=== PATIENT | female | born 1965 | race Caucasian/White ===

== ENCOUNTER 2017-08-18 05:38 | Inpatient (IN) | payer MEDICAID ==
[~2017-08-18] VITALS: Ht 180.3 cm; Wt 84.7 kg
[2017-08-18 05:52] LABS: URINE BLOOD (Dip) POC 2+ (NEGATIVE)
[2017-08-18] MEDS ORDERED: SOD CHLORIDE 0.9% 500 ML IV STA (05:56)
[2017-08-18] MEDS ORDERED: morphine 4 MG/ML VIAL IV STA (05:56)
[2017-08-18] MEDS ORDERED: ONDANSETRON 4 MG INJ IV STA (05:56)
[2017-08-18] MEDS ORDERED: SODIUM CHLORIDE 0.9% 1L BAG IV* STA (06:14)
--- NOTE | 2017-08-18 06:39 | RADRPT ---
PROCEDURE: CT Abdomen and Pelvis without contrast. CLINICAL INDICATION: Abdominal pain. TECHNIQUE: Routine abdominopelvic CT was performed without intravenous contrast and reformatted in the axial, coronal, sagittal planes. DICOM images are available. Radiation dose: CTDIvol (mGy) = 12.5; total DLP(mGy-cm) = 761 One or more of the following radiation dose techniques were used: -Automated exposure control. -Adjust of the mA and/or kV according to patient size. -Use of iterative reconstruction technique. COMPARISON: None. FINDINGS: Lower Thorax: Normal. Liver: Large, 21 cm in craniocaudal length. Gallbladder/Biliary: Normal. Pancreas: Normal. Spleen: Enlarged, 14 cm in craniocaudal length. Adrenal glands: Normal. Kidneys: 5 mm right proximal ureteral calculus with ipsilateral moderate to severe hydroureteronephr osis and perinephric inflammation. Additional 2 mm nonobstructive calculus identified in the lower p ole, right kidney. Gastrointestinal Tract: Intact surgical anastomoses identified in the sigmoid colon. No abnormal bow el wall thickening or dilatation. Normal appendix.. Lymph: No enlarged or abnormal appearing lymph nodes. Vascular structures: Moderate atherosclerotic aortic calcifications without aneurysm. Peritoneal cavity: No free fluid or fluid collection. Reproductive Organs: Normal. Musculoskeletal: No suspicious bone lesions. Abdominal wall: Moderate sized fat-containing umbilical hernia. IMPRESSION: 5 mm obstructing proximal right ureteral calculus with ipsilateral moderate to severe hydroureterone phrosis. Hepatosplenomegaly. Moderate sized fat-containing umbilical hernia. RPTAT: EE .Lucian Hernandez MD, Date Time Electronically viewed and signed by .Lucian Hernandez MD, MD on 08/18/2017 06:45 .C/
[2017-08-18] MEDS ORDERED: KETOROLAC 30 MG INJ IV STA (06:41)
--- NOTE | 2017-08-18 06:45 | RADRPT ---
PROCEDURE: CHEST - 1 VIEW CLINICAL INDICATION: 52-year-old female with chest/abdominal pain and sepsis. TECHNIQUE: A single frontal AP semi-erect view of the chest was performed. The images were review ed on a PACS workstation. COMPARISON: CT abdomen/pelvis August 18, 2017. FINDINGS: There is a shallow inspiration accentuating the heart size. Accounting for this, the cardiomediastin al silhouette is within normal limits. There is no evidence for an infiltrate. There is no evidenc e for congestive heart failure. There is no evidence for pneumothorax. The osseous structures are in tact. IMPRESSION: No evidence for active cardiopulmonary disease. .Carlos Alberto Montaño MD, Date Time Electronically viewed and signed by .Carlos Alberto Montaño MD, on 08/18/2017 06:45 .[place]e/
--- NOTE | 2017-08-18 06:53 | ERD ---
ER Documentation Chief Complaint Chief Complaint sudden onset RLQ sharp AP, feels need to have BM but not able to HPI 52-year-old homeless female presenting with sudden onset right lower quadrant sharp abdominal pain that started about 5 hours prior to arrival. The pain radiates to her right back. The pain is constant, tearing, 10 out of 10. It was associated with one episode of vomiting that was nonbloody and nonbilious. She denies any associated dysuria, fever, chills, hematochezia or melena. Otherwise history is limited as the patient is in substantial pain and refusing to answer further questions. ROS Limited review of systems as the patient is in severe pain and not answering questions consistently Allergies Allergies: Coded Allergies: Penicillins (Verified Allergy, Unknown, 08/18/17) Sulfa (Sulfonamide Antibiotics) (Verified Allergy, Unknown, 08/18/17) clindamycin (Verified Allergy, Unknown, 08/18/17) erythromycin base (Verified Allergy, Unknown, 08/18/17) tetracycline (Verified Allergy, Unknown, 08/18/17) PMhx/Soc History of Surgery: Yes (ruptured diverticulum repair, colostomy reverse, hernia w/ mesh repair) Anesthesia Reaction: No Hx Neurological Disorder: Yes (brain cancer (past)) Hx Respiratory Disorders: Yes (asthma) Hx Cardiac Disorders: No Hx Alcohol Use: Yes (occasionally) Hx Substance Use: Yes (occasional meth and pot) Hx Tobacco Use: Yes Smoking Status: Current every day smoker FmHx Family History: other (Unable to obtain) Physical Exam Vitals Vital Signs Date Time Temp Pulse Resp B/P Pulse Ox O2 Delivery O2 Flow Rate FiO2 08/18/17 07:00 97.7 67 22 158/93 100 Room Air 08/18/17 05:40 97.0 99 26 166/103 100 Physical Exam Const: Disheveled, dirty, nontoxic, in severe distress secondary to pain, writhing around in bed Head: Atraumatic Eyes: Normal Conjunctiva ENT: Dry mucous membranes. Poor dentition. Th. Neck: Full range of motion..~ No meningismus. Resp: Clear to auscultation bilaterally Cardio: Tachycardic with regular Rhythm, no murmurs Abd: Midline abdominal surgical scar noted. Soft, mild mid right abdominal tenderness, non distended.no pulsatile abdominal mass. No McBurney's point tenderness. No Wiseman's sign. Normal bowel sounds Skin: No petechiae or rashes. Scattered old bruises on left lower extremity. Back: No midline or flank tenderness Ext: No cyanosis, or edema Neur: Awake and alert Psych: Normal Mood and Affect Result Diagram: 08/18/17 0650 08/18/17 0650 Results 24 hrs Laboratory Tests Test 08/18/17 05:40 08/18/17 05:51 08/18/17 06:50 Urine Color YELLOW Urine Clarity CLOUDY Urine pH 7.0 Urine Specific [place] 1.011 Urine Ketones 1+mg/dL Urine Nitrite NEGATIVEmg/dL Urine Bilirubin NEGATIVEmg/dL Urine Urobilinogen NEGATIVEmg/dL Urine Leukocyte Esterase NEGATIVELeu/ul Urine Microscopic RBC > 182/HPF Urine Microscopic WBC 0/HPF Urine Amorphous Crystals MANY/HPF Urine Hemoglobin 3+mg/dL Urine Glucose NEGATIVEmg/dL Urine Total Protein NEGATIVEmg/dl Bedside Urine pH (LAB) 7.5 Bedside Urine Protein (LAB) Negative Bedside Urine Glucose (UA) Negative Bedside Urine Ketones (LAB) 1+ Bedside Urine Blood 2+ Bedside Urine Nitrite (LAB) Negative Bedside Urine Leukocyte Esterase (L Negative White Blood Count 10.910^3/ul Red Blood Count 5.1210^6/ul Hemoglobin 14.2g/dl Hematocrit 41.2% Mean Corpuscular Volume 80.5fl Mean Corpuscular Hemoglobin 27.7pg Mean Corpuscular Hemoglobin Concent 34.5g/dl Red Cell Distribution Width 13.1% Platelet Count 59796^3/UL Mean Platelet Volume 10.0fl Neutrophils % 80.4% Lymphocytes % 13.4% Monocytes % 4.6% Eosinophils % 0.7% Basophils % 0.6% Nucleated Red Blood Cells % 0.0/100WBC Neutrophils # 8.810^3/ul Lymphocytes # 1.510^3/ul Monocytes # 0.510^3/ul Eosinophils # 0.110^3/ul Basophils # 0.110^3/ul Nucleated Red Blood Cells # 0.010^3/ul Prothrombin Time 13.1Sec Prothrombin Time Ratio 1.0 INR International Normalized Ratio 0.98 Activated Partial Thromboplast Time 27.0Sec Sodium Level 143mmol/L Potassium Level 3.9mmol/L Chloride Level 104mmol/L Carbon Dioxide Level 29mmol/L Anion Gap 14 Blood Urea Nitrogen 13mg/dl Creatinine 0.90mg/dl Glucose Level 109mg/dl Lactic Acid Level 0.8mmol/L Calcium Level 9.0mg/dl Total Bilirubin 0.5mg/dl Direct Bilirubin 0.00mg/dl Indirect Bilirubin 0.5mg/dl Aspartate Amino Transf (AST/SGOT) 47IU/L Alanine Aminotransferase (ALT/SGPT) 63IU/L Alkaline Phosphatase 70IU/L Total Protein 6.9g/dl Albumin 3.8g/dl Globulin 3.10g/dl Albumin/Globulin Ratio 1.22 Lipase 41U/L Current Medications Medications (Trade) Dose Ordered Sig/Luciano Route PRN Reason Start Time Stop Time Status Last Admin Dose Admin Sodium Chloride (NS) 500 ml @ 500 mls/hr Q1H STAT IV 08/18/17 05:56 08/18/17 06:55 DC 08/18/17 06:03 Morphine Sulfate (morphine) 4 mg ONCE STAT IV 08/18/17 05:56 08/18/17 05:57 DC 08/18/17 06:03 Ondansetron HCl (Zofran Inj) 4 mg ONCE STAT IV 08/18/17 05:56 08/18/17 05:57 DC 08/18/17 06:03 Sodium Chloride (NS) 2,260 ml BOLUS OVER 2 HOURS STAT IV* 08/18/17 06:14 08/18/17 06:17 DC 08/18/17 07:15 Ketorolac Tromethamine (Toradol) 30 mg ONCE STAT IV 08/18/17 06:41 08/18/17 06:44 DC 08/18/17 07:14 Hydromorphone HCl (Dilaudid) 1 mg ONCE STAT IV 08/18/17 07:30 08/18/17 07:31 DC 08/18/17 07:43 Tamsulosin HCl (Flomax) 0.4 mg ONCE ONCE PO 08/18/17 08:00 08/18/17 08:01 DC 08/18/17 08:21 Ondansetron HCl (Zofran Inj) 4 mg BRIDGE ORDER PRN IV NAUSEA AND/OR VOMITING 08/18/17 08:00 08/19/17 07:59 Acetaminophen (Tylenol Tab) 650 mg ER BRIDGE PRN PO MILD PAIN/FEVER 08/18/17 08:00 08/19/17 07:59 Procedures/MDM EMERGENT LABS AND DIAGNOSTIC STUDIES: Lab Results above were reviewed and interpreted by me. CBC: no anemia or evidence of infection CMP: No evidence of electrolyte abnormality, renal failure, hypoglycemia, liver failure, or biliary obstruction Lipase: no evidence of pancreatitis Lactate within normal limits UA: 2+ blood, 1+ ketones, no evidence of infection Radiology Results as interpreted by Radiology below were reviewed by Kirt Jaime MD: Chest x-ray shows no acute abnormalities CT abdomen and pelvis: IMPRESSION: 5 mm obstructing proximal right ureteral calculus with ipsilateral moderate to severe hydroureteronephrosis. Hepatosplenomegaly. Moderate sized fat-containing umbilical hernia. .Lucian Hernandez MD, MD Date Time Electronically viewed and signed by .Lucian Hernandez MD, MD on 08/18/2017 06:45 Initial Nursing notes reviewed. Previous Medical Records requested via the Electronic Health Record. EMERGENCY DEPARTMENT COURSE / MEDICAL DECISION MAKING: Patient presented with severe right-sided abdominal pain with CT notable for an obstructing right-sided proximal ureter stone with severe hydronephrosis. There is no evidence of associated pyelonephritis. Initially her vitals were notable for tachycardia and tachypnea, likely secondary to pain. I have a low suspicion for sepsis. I also have a low suspicion for aortic dissection. Patient was treated with IV fluids, antiemetics, and analgesics. Given she is homeless with poor outpatient follow-up, I believe she will benefit from admission for urology evaluation. I spoke with Dr. Daly from urology, who will consult on the patient. At this time he does not think intervention is necessary but monitoring for improvement was recommended. He also recommended starting Flomax. Patient will be admitted to the hospitalist team. Admission accepted by Dr. Hermes Loja. Departure Diagnosis: Primary Impression: Obstruction of right ureteropelvic junction due to stone Additional Impression: Right sided abdominal pain Condition: EDEL Valente MD Aug 18, 2017 06:52
[2017-08-18 07:04] LABS: BASOPHIL # 0.1 10^3/ul (0.0-0.1); BASOPHILS % 0.6 % (0.0-2.0); EOSINOPHILS # 0.1 10^3/ul (0.0-0.5); EOSINOPHILS % 0.7 % (0.0-7.0); HEMATOCRIT 41.2 % (37.0-47.0); HEMOGLOBIN 14.2 g/dl (12.0-16.0); LYMPHOCYTES # 1.5 10^3/ul (0.8-2.9); LYMPHOCYTES % 13.4 % (15.0-51.0); MEAN CORPUSCULAR HEMOGLOBIN 27.7 pg (29.0-33.0); MEAN CORPUSCULAR HGB CONC 34.5 g/dl (32.0-37.0); MEAN CORPUSCULAR VOLUME 80.5 fl (82.0-101.0); MONOCYTE # 0.5 10^3/ul (0.3-0.9); MONOCYTES % 4.6 % (0.0-11.0); NEUTROPHIL # 8.8 10^3/ul (1.6-7.5); NEUTROPHILS % 80.4 % (39.0-77.0); PLATELET COUNT 202 10^3/UL (140-415); RED BLOOD COUNT 5.12 10^6/ul (4.20-5.40); RED CELL DISTRIBUTION WIDTH 13.1 % (11.5-14.5); WHITE BLOOD COUNT 10.9 10^3/ul (4.8-10.8)
[2017-08-18 07:09] LABS: ADD UMIC YES; UR AMORPHOUS CRYSTAL MANY /HPF (NONE SEEN); UR ASCORBIC ACID NEGATIVE (NEGATIVE); UR BILIRUBIN (Dip) NEGATIVE (NEGATIVE); UR BLOOD (Dip) 3+ mg/dL (NEGATIVE); UR CLARITY CLOUDY (CLEAR); UR COLOR YELLOW (YELLOW); UR GLUCOSE (Dip) NEGATIVE (NEGATIVE); UR KETONES (Dip) 1+ mg/dL (NEGATIVE); UR LEUKOCYTE ESTERASE (Dip) NEGATIVE Leu/ul (NEGATIVE); UR NITRITE (Dip) NEGATIVE (NEGATIVE); UR RBC > 182 /HPF (0-5); UR SPECIFIC GRAVITY (Dip) 1.011 (1.003-1.030); UR TOTAL PROTEIN (Dip) NEGATIVE (NEGATIVE); UR UROBILINOGEN (Dip) NEGATIVE (NEGATIVE)
[2017-08-18 07:20] LABS: INR 0.98; PROTIME 13.1 Sec (11.9-14.9)
[2017-08-18 07:23] LABS: ALBUMIN 3.8 g/dl (3.3-4.9); ALBUMIN/GLOBULIN RATIO 1.22; BILIRUBIN,INDIRECT 0.5 mg/dl (0-1.1); BILIRUBIN,TOTAL 0.5 mg/dl (0.2-1.3); CREATININE 0.9 mg/dl (0.44-1.00); POTASSIUM 3.9 mmol/L (3.5-5.1); TOTAL PROTEIN 6.9 g/dl (6.1-8.1)
[2017-08-18] MEDS ORDERED: HYDROmorphONE 1 MG/ML SYG IV STA (07:30)
[2017-08-18] MEDS ORDERED: ACETAMINOPHEN 325 MG TAB PO PRN (08:00)
[2017-08-18] MEDS ORDERED: ONDANSETRON 4 MG INJ IV PRN ×2 (08:00→11:00)
[2017-08-18] MEDS ORDERED: TAMSULOSIN (SR) 0.4 MG CAP PO ONE (08:00)
--- NOTE | 2017-08-18 08:32 | RADRPT ---
PROCEDURE: Abdominal study CLINICAL INDICATION: Flank pain and Right ureteral stone. TECHNIQUE: Supine abdomen. COMPARISON: CT abdomen and pelvis August 18, 2017 FINDINGS: The visualized lung bases are clear. No pleural effusions are noted. The bowel gas pattern is unremarkable with no evidence of obstruction. A right proximal to mid ureteral calculus is noted measuring 5 mm superior inferiorly by 3 mm transv ersely to the right of the L3 vertebral body. Mild spondylosis is noted of the imaged spine and post surgical changes are noted superimposed over the left jeane sacrum. Mild degenerative changes are not ed of the bilateral hips. Phleboliths are noted in the pelvis. No acute fractures or dislocations ar e noted. No evidence for pneumoperitoneum is present per IMPRESSION: 1. Right proximal and the mid 5 mm ureteral calculus adjacent to the L3 vertebral body. 2. Mild spondylosis and degenerative changes as described above. 3. Status post surgical changes superimposed over the left jeane sacrum RPTAT: HDC .Leah Thomason MD, MD Date Time Electronically viewed and signed by .Leah Thomason MD, on 08/18/2017 08:31 .C/
[2017-08-18 09:15] VITALS: TEMP 97.6
[2017-08-18 09:38] VITALS: Ht 180.3 cm; Wt 84.7 kg
[2017-08-18 09:48] VITALS: BP 138/89; PULSE 66; RESP 18
[2017-08-18] MEDS ORDERED: ALBU18HF INHALATION (09:54)
[2017-08-18] MEDS ORDERED: LEVO25TA53 PO (09:54)
[2017-08-18] MEDS ORDERED: CHOL100062 PO (09:54)
[2017-08-18] MEDS ORDERED: KETOROLAC 30 MG INJ IV PRN (11:00)
[2017-08-18] MEDS ORDERED: LORAZEPAM 2 MG INJ IV PRN (11:00)
--- NOTE | 2017-08-18 11:12 | HP ---
Date/Time of Note Date/Time of Note DATE: 08/18/17 TIME: 10:46 Assessment/Plan VTE Prophylaxis VTE Prophylaxis Intervention: SCD's Assessment/Plan Assessment/Plan 52-year-old female who presented with 5 hour history of right sided severe abdominal pain found to have obstructing proximal right ureteral calculus with ipsilateral moderate to severe hydroureteronephrosis. Patient also reports history of the following conditions managed in the past: 1. Hypothyroidism 2. Asperger's syndrome and ADHD 3. Status post exploratory laparotomy with resection, colostomy placement and subsequent reversal. 4. Social issues including homelessness, chronic methamphetamine and cannabinoid use. PLAN: Admit patient for urology review and possible intervention if indicated, institute pain control, IV fluids. Patient reports no risk of withdrawal, but we will closely monitor. Screen TSH and T4 levels, follow-up urine culture findings and treat if indicated. Further interventions per clinical course. Patient plan of care discussed in detail with patient. Patient verbalized understanding. HPI/ROS Admit Date/Time Admit Date/Time Aug 18, 2017 at 07:37 Hx of Present Illness This is a 52-year-old female, homeless by her own report who presents to the emergency room today with right-sided flank pain of severe in intensity and that started about 5 hours prior to arrival in the emergency room. Patient rates pain as 10 out of 10 and was relieved by medication given in the emergency room. The patient was sleeping comfortably when I saw her and was actually falling asleep in the middle of the conversation during my visit. The patient states she does have known history of kidney stones, she has had no fever and she has not seen any blood in her stool. She is apparently has a history of Asperger's as well as ADHD and hypothyroidism and asthma, but she is taking no meds for a year while she has been on the streets. She denies chest pain, passing out episodes, palpitations, Blood in her stool, black stools, headaches. ROS 12 point review if systems was done and pertinent findings are as noted. PMH/Family/Social Past Medical History * Hypothyroidism off meds * ADHD/Asperger's syndrome * "Bad liver since childhood" Past Surgical History 1. Carpal tunnel right wrist 2. Elbow surgery 3. Expiratory laparotomy with colostomy placement and subsequent reversal secondary to ruptured bowel Social History Alcohol Use: occasionally Smoking Status: Current every day smoker Drug Use: marijuana, other (meth) Exam/Review of Systems Vital Signs Vitals Vital Signs Date Time Temp Pulse Resp B/P Pulse Ox O2 Delivery O2 Flow Rate FiO2 08/18/17 09:48 97.9 66 18 138/89 100 Room Air Exam Constitutional: oriented, No alert (Sleep be likely from medication, was falling asleep between sentences.) Head: atraumatic, normocephalic Eyes: PERRL, No icteric ENMT: mucosa pink and moist Neck: supple Respiratory: clear to auscultation, No labored breathing, No wheezing Cardiovascular: regular rate and rhythm, No murmurs/extra sounds Gastrointestinal: bowel sounds, soft, tender (Was wincing on right lower quadrant exam, but area did not seem overtly tender. No rebound.) Extremities: edema Neurological: No confused Labs Result Diagram: 08/18/17 0650 08/18/17 0650 Procedures Procedures Laboratory Tests Test 08/18/17 05:40 08/18/17 05:51 08/18/17 06:50 Urine Color YELLOW Urine Clarity CLOUDY Urine pH 7.0 Urine Specific [place] 1.011 Urine Ketones 1+mg/dL Urine Nitrite NEGATIVEmg/dL Urine Bilirubin NEGATIVEmg/dL Urine Urobilinogen NEGATIVEmg/dL Urine Leukocyte Esterase NEGATIVELeu/ul Urine Microscopic RBC > 182/HPF Urine Microscopic WBC 0/HPF Urine Amorphous Crystals MANY/HPF Urine Hemoglobin 3+mg/dL Urine Glucose NEGATIVEmg/dL Urine Total Protein NEGATIVEmg/dl Bedside Urine pH (LAB) 7.5 Bedside Urine Protein (LAB) Negative Bedside Urine Glucose (UA) Negative Bedside Urine Ketones (LAB) 1+ Bedside Urine Blood 2+ Bedside Urine Nitrite (LAB) Negative Bedside Urine Leukocyte Esterase (L Negative White Blood Count 10.910^3/ul Red Blood Count 5.1210^6/ul Hemoglobin 14.2g/dl Hematocrit 41.2% Mean Corpuscular Volume 80.5fl Mean Corpuscular Hemoglobin 27.7pg Mean Corpuscular Hemoglobin Concent 34.5g/dl Red Cell Distribution Width 13.1% Platelet Count 86518^3/UL Mean Platelet Volume 10.0fl Neutrophils % 80.4% Lymphocytes % 13.4% Monocytes % 4.6% Eosinophils % 0.7% Basophils % 0.6% Nucleated Red Blood Cells % 0.0/100WBC Neutrophils # 8.810^3/ul Lymphocytes # 1.510^3/ul Monocytes # 0.510^3/ul Eosinophils # 0.110^3/ul Basophils # 0.110^3/ul Nucleated Red Blood Cells # 0.010^3/ul Prothrombin Time 13.1Sec Prothrombin Time Ratio 1.0 INR International Normalized Ratio 0.98 Activated Partial Thromboplast Time 27.0Sec Sodium Level 143mmol/L Potassium Level 3.9mmol/L Chloride Level 104mmol/L Carbon Dioxide Level 29mmol/L Anion Gap 14 Blood Urea Nitrogen 13mg/dl Creatinine 0.90mg/dl Glucose Level 109mg/dl Lactic Acid Level 0.8mmol/L Calcium Level 9.0mg/dl Total Bilirubin 0.5mg/dl Direct Bilirubin 0.00mg/dl Indirect Bilirubin 0.5mg/dl Aspartate Amino Transf (AST/SGOT) 47IU/L Alanine Aminotransferase (ALT/SGPT) 63IU/L Alkaline Phosphatase 70IU/L Total Protein 6.9g/dl Albumin 3.8g/dl Globulin 3.10g/dl Albumin/Globulin Ratio 1.22 Lipase 41U/L PROCEDURE: CT Abdomen and Pelvis without contrast. CLINICAL INDICATION: Abdominal pain. TECHNIQUE: Routine abdominopelvic CT was performed without intravenous contrast and reformatted in the axial, coronal, sagittal planes. DICOM images are available. Radiation dose: CTDIvol (mGy) = 12.5; total DLP(mGy-cm) = 761 One or more of the following radiation dose techniques were used: -Automated exposure control. -Adjust of the mA and/or kV according to patient size. -Use of iterative reconstruction technique. COMPARISON: None. FINDINGS: Lower Thorax: Normal. Liver: Large, 21 cm in craniocaudal length. Gallbladder/Biliary: Normal. Pancreas: Normal. Spleen: Enlarged, 14 cm in craniocaudal length. Adrenal glands: Normal. Kidneys: 5 mm right proximal ureteral calculus with ipsilateral moderate to severe hydroureteronephrosis and perinephric inflammation. Additional 2 mm nonobstructive calculus identified in the lower pole, right kidney. Gastrointestinal Tract: Intact surgical anastomoses identified in the sigmoid colon. No abnormal bowel wall thickening or dilatation. Normal appendix.. Lymph: No enlarged or abnormal appearing lymph nodes. Vascular structures: Moderate atherosclerotic aortic calcifications without aneurysm. Peritoneal cavity: No free fluid or fluid collection. Reproductive Organs: Normal. Musculoskeletal: No suspicious bone lesions. Abdominal wall: Moderate sized fat-containing umbilical hernia. IMPRESSION: 5 mm obstructing proximal right ureteral calculus with ipsilateral moderate to severe hydroureteronephrosis. Hepatosplenomegaly. Moderate sized fat-containing umbilical hernia. RPTAT: EE .Lucian Hernandez MD, Date Time Electronically viewed and signed by .Lucian Hernandez MD, MD on 08/18/2017 06:45 .C/ CC: GENTRY PLUMMER PROCEDURE: CHEST - 1 VIEW CLINICAL INDICATION: 52-year-old female with chest/abdominal pain and sepsis. TECHNIQUE: A single frontal AP semi-erect view of the chest was performed. The images were reviewed on a PACS workstation. COMPARISON: CT abdomen/pelvis August 18, 2017. FINDINGS: There is a shallow inspiration accentuating the heart size. Accounting for this , the cardiomediastinal silhouette is within normal limits. There is no evidence for an infiltrate. There is no evidence for congestive heart failure. There is no evidence for pneumothorax. The osseous structures are intact. IMPRESSION: No evidence for active cardiopulmonary disease. .Carlos Alberto Montaño MD, MD Date Time Electronically viewed and signed by .Carlos Alberto Montaño MD, MD on 08/18/2017 06:45 .M/ CC: EDEL BILLY MD PROCEDURE: Abdominal study CLINICAL INDICATION: Flank pain and Right ureteral stone. TECHNIQUE: Supine abdomen. COMPARISON: CT abdomen and pelvis August 18, 2017 FINDINGS: The visualized lung bases are clear. No pleural effusions are noted. The bowel gas pattern is unremarkable with no evidence of obstruction. A right proximal to mid ureteral calculus is noted measuring 5 mm superior inferiorly by 3 mm transversely to the right of the L3 vertebral body. Mild spondylosis is noted of the imaged spine and postsurgical changes are noted superimposed over the left jeane sacrum. Mild degenerative changes are noted of the bilateral hips. Phleboliths are noted in the pelvis. No acute fractures or dislocations are noted. No evidence for pneumoperitoneum is present per IMPRESSION: 1. Right proximal and the mid 5 mm ureteral calculus adjacent to the L3 vertebral body. 2. Mild spondylosis and degenerative changes as described above. 3. Status post surgical changes superimposed over the left jeane sacrum RPTAT: HDC .Leah Thomason MD, MD Date Time Electronically viewed and signed by .Leah Thomason MD, MD on 08/18/2017 08: 31 .C/ CC: EZEQUIEL GARDUNO MD, BOLAT[place]O M. Aug 18, 2017 10:56
[2017-08-18] MEDS: SOD CHLORIDE 0.9% 1,000 ML IV SCH ×2 (12:34→19:56)
--- NOTE | 2017-08-18 12:47 | CONS ---
DATE OF ADMISSION: 08/18/2017 DATE OF CONSULTATION: 08/18/2017 REQUESTING PHYSICIAN: Dr. Daley: HISTORY OF PRESENT ILLNESS: This is a 52-year-old female who is homeless and presented to the emerg ency room at [facility] with right flank pain. She underwent a CT scan of the abd omen and pelvis and that showed a 5 mm stone in the upper ureter with hydronephrosis. Therefore, a urological consultation was requested. The patient upon questioning her stated that about 6 months ago she presented to another hospital, w as told she has a stone, was given medication and sent home. Most likely that is the same stone amber t she has right now. She never passed the stone that she could see. The patient's other medical pr oblem, she does have a history of hypothyroidism and Asperger syndrome, ADHD and she has had a bad l iver since she was a child. PAST SURGICAL HISTORY: She has had a colostomy for ruptured bowel. Probably she did have a diverti culitis. She did have a reversal of the colostomy later on. She also has had elbow surgery and car pal tunnel on the right side. SOCIAL HISTORY: Again, she is a homeless person. She does drink occasionally. She is a current ev eryday smoker and she does also smoke marijuana and sometimes methamphetamine. ALLERGIES: CLONIDINE, PENICILLIN, and SULFA. Also CLINDAMYCIN, ERYTHROMYCIN BASE, MORPHINE and TET RACYCLINE. PHYSICAL EXAMINATION: GENERAL: Reveals a 52-year-old female who is afebrile. VITAL SIGNS: Temperature 97.9, pulse is 66, respiration 18, blood pressure 138/89. ABDOMEN: Tender in the right flank area. There are scars on her abdomen from her prior surgeries. EXTREMITIES: Reveal no edema. LABORATORY DATA: Her CBC shows a white count of 10.9, hemoglobin 14.2, hematocrit 41.2. BUN is 13, creatinine 0.9. Electrolytes are normal. PT is 13.1, INR 0.98, PTT 27.0. The medication that she is presently on is morphine sulfate, lorazepam, Toradol and Zofran. The CT scan of the abdomen and pelvis was reported as a 5 mm obstructing proximal right ureteral stone with ipsilateral moderate to severe hydroureteronephrosis, hepatosplenomegaly, moderate size fat contain ing umbilical hernia. She also later on had a KUB, which I ordered for her to see if we could see t he stone and that was reported as a 5 mm ureteral calculus adjacent to the L3-level vertebral body i s visualized. IMPRESSION: Right upper ureteral stone with obstruction. PLAN: To give her pain medications and cover her with her antibiotic, put her on Flomax and repeat the KUB again in the morning and if the stone does not move then we may have to do a ureteroscopy an d laser lithotripsy or if we could push the stone back into the kidney and do ESWL we could try that as well. I will follow her urological problem with you. I do thank you for allowing me to help in her care. Dictated By: EZEQUIEL GARDUNO MD BB/NTS Conf#: [id number] DID#: [id number] CC: MOI BAH MD;*EndCC*
[2017-08-18] MEDS: morphine 4 MG/ML VIAL IV PRN ×2 (13:44→19:56)
[2017-08-18 14:30] VITALS: BP 130/75; RESP 20
[2017-08-18] MEDS ORDERED: INFLUENZA VIRUS VACCINE 0.5 ML SYG IM* ONE (15:00)
[2017-08-18 20:00] VITALS: BP 131/65; RESP 18
[2017-08-18] MEDS: TAMSULOSIN (SR) 0.4 MG CAP PO SCH (20:46)
[2017-08-19 02:00] VITALS: BP 129/65; RESP 18
[2017-08-19] MEDS: SOD CHLORIDE 0.9% 1,000 ML IV SCH ×3 (03:00→17:51)
[2017-08-19 06:50] LABS: BASOPHIL # 0.1 10^3/ul (0.0-0.1); BASOPHILS % 1.2 % (0.0-2.0); EOSINOPHILS # 0.2 10^3/ul (0.0-0.5); EOSINOPHILS % 3.1 % (0.0-7.0); HEMATOCRIT 37.7 % (37.0-47.0); HEMOGLOBIN 12.7 g/dl (12.0-16.0); LYMPHOCYTES # 1.7 10^3/ul (0.8-2.9); LYMPHOCYTES % 26.7 % (15.0-51.0); MEAN CORPUSCULAR HEMOGLOBIN 27.3 pg (29.0-33.0); MEAN CORPUSCULAR HGB CONC 33.7 g/dl (32.0-37.0); MEAN CORPUSCULAR VOLUME 81.1 fl (82.0-101.0); MEAN PLATELET VOLUME 10.3 fl (7.4-10.4); MONOCYTE # 0.5 10^3/ul (0.3-0.9); MONOCYTES % 7.6 % (0.0-11.0); NEUTROPHILS % 61.2 % (39.0-77.0); PLATELET COUNT 172 10^3/UL (140-415); RED BLOOD COUNT 4.65 10^6/ul (4.20-5.40); RED CELL DISTRIBUTION WIDTH 13.1 % (11.5-14.5); WHITE BLOOD COUNT 6.5 10^3/ul (4.8-10.8)
[2017-08-19 07:04] LABS: CALCIUM 8.9 mg/dl (8.4-10.2); CHOL/HDL RATIO 3.5 RATIO; MAGNESIUM 1.5 mg/dl (1.7-2.5)
[2017-08-19 07:33] LABS: THYROID STIMULATING HORMONE 0.983 MIU/L (0.465-4.680)
[2017-08-19 08:00] VITALS: BP 124/62; RESP 20
--- NOTE | 2017-08-19 08:16 | CONS ---
Date/Time of Note Date/Time of Note DATE: 08/19/17 TIME: 08:13 Consult Date/Type/Reason Admit Date/Time Aug 18, 2017 at 07:37 Initial Consult Date August 18, 2017 Type of Consultation: Urology Reason for Consultation Right ureteral stone Ordering Provider: DILAN KIM Subjective Patient still have pain in the right flank area on the right side of the abdomen , no nausea or vomiting Objective Vital Signs Date Time Temp Pulse Resp B/P Pulse Ox O2 Delivery O2 Flow Rate FiO2 08/19/17 02:00 98.5 18 18 129/65 96 08/18/17 09:48 Room Air Intake and Output 08/18/17 08/18/17 08/19/17 15:00 23:00 07:00 Intake Total 1385 ml 1250 ml Output Total 800 ml Balance 585 ml 1250 ml Exam Right flank tenderness and tenderness in the right upper quadrant Results/Medications Result Diagram: 08/19/17 0553 08/19/17 0552 Results 24 hrs Laboratory Tests Test 08/18/17 10:27 08/19/17 05:52 08/19/17 05:53 Lactic Acid Level 0.9 Sodium Level 140 Potassium Level 4.0 Chloride Level 106 Carbon Dioxide Level 30 Anion Gap 8 Blood Urea Nitrogen 13 Creatinine 1.00 Glucose Level 115 Calcium Level 8.9 Magnesium Level 1.5 L Triglycerides Level 47 Cholesterol Level 63 L LDL Cholesterol, Calculated 36 HDL Cholesterol 18 L Cholesterol/HDL Ratio 3.5 Thyroid Stimulating Hormone (TSH) 0.983 Free Thyroxine 1.15 White Blood Count 6.5 # Red Blood Count 4.65 Hemoglobin 12.7 Hematocrit 37.7 Mean Corpuscular Volume 81.1 L Mean Corpuscular Hemoglobin 27.3 L Mean Corpuscular Hemoglobin Concent 33.7 Red Cell Distribution Width 13.1 Platelet Count 172 Mean Platelet Volume 10.3 Neutrophils % 61.2 Lymphocytes % 26.7 Monocytes % 7.6 Eosinophils % 3.1 Basophils % 1.2 Nucleated Red Blood Cells % 0.0 Neutrophils # 4.0 Lymphocytes # 1.7 Monocytes # 0.5 Eosinophils # 0.2 Basophils # 0.1 Nucleated Red Blood Cells # 0.0 Medications Current Medications Morphine Sulfate 4 mg 4 mg Q4H PRN IV pain Last administered on 08/18/17t 19:56 ; Admin Dose 4 MG; Start 08/18/17 at 11:00 Sodium Chloride (NS) 1,000 ml @ 125 mls/hr Q8H IV Last administered on 05:05; Admin Dose 125 MLS/HR; Start 08/18/17 at 11:00 Lorazepam (Ativan) 1 mg Q6H PRN IV anxiety/ agitation; Start 08/18/17 at 11:00 Ketorolac Tromethamine (Toradol) 30 mg Q6H PRN IV PAIN; Start 08/18/17 at 11:00 ; Stop 08/21/17 at 10:59 Ondansetron HCl (Zofran Inj) 4 mg Q6H PRN IV NAUSEA AND/OR VOMITING; Start 08/18/17 at 11:00 Tamsulosin HCl (Flomax) 0.4 mg HS PO Last administered on 08/18/17 20:46; Admin Dose 0.4 MG; Start 08/18/17 at 21:00 Assessment/Plan Chief Complaint/Hosp Course 52-year-old female was admitted to the hospital because of right flank pain was nausea vomiting and chills. CT scan of the abdomen and pelvis showed a 5 mm stone in the upper right ureter was hydronephrosis. KUB for today is pending, the patient still have some pain. Will continue to give her pain medications, strain the urine, put her on Flomax, and do a KUB to see if the stone is moving and if it does not then we will do cystoscopy ureteroscopy laser lithotripsy and inserted JJ stent. Problems: EZEQUIEL GARDUNO MD Aug 19, 2017 08:16
[2017-08-19] MEDS ORDERED: MAGNESIUM SULFATE 2 GM/50 ML 50 ML IVPB ONE (10:00)
[2017-08-19] MEDS: morphine 4 MG/ML VIAL IV PRN ×3 (10:09→19:58)
--- NOTE | 2017-08-19 10:23 | RADRPT ---
PROCEDURE: XR Abdomen. CLINICAL INDICATION: Right ureteral calculus. TECHNIQUE: AP supine abdomen x-ray. COMPARISON: 08/18/2017. FINDINGS: The bowel gas pattern is normal with no evidence of obstruction. Surgical clips are present in the left side of the abdomen. There is a calculus overlying the mid right ureter at the L3-4 level. There are no other abnormal ca lcifications overlying the urinary tracts. The osseus structures are unremarkable. IMPRESSION: 1. Surgical clips in the left side of the abdomen. 2. Calculus overlying the mid right ureter at the L3-4 level. 3. Otherwise unremarkable study. RPTAT: QQ .Jeff Neely MD, MD Date Time Electronically viewed and signed by .Jeff Neely MD, MD on 08/19/2017 10:23 .R/
[2017-08-19] MEDS ORDERED: ALBUTEROL/IPRATROPIUM (NEB) 3 ML AMP HHN PRN (12:00)
[2017-08-19 14:00] VITALS: BP 136/82; RESP 20
[2017-08-19] MEDS: CEFTRIAXONE 1 GM/50 ML (PMX) 50 ML IVPB SCH (14:16)
[2017-08-19] MEDS: ALBUTEROL/IPRATROPIUM (NEB) 3 ML AMP HHN SCH ×2 (14:47→20:48)
--- NOTE | 2017-08-19 16:03 | PN ---
Date/Time of Note Date/Time of Note DATE: 08/19/17 TIME: 15:58 Assessment/Plan VTE Prophylaxis VTE Prophylaxis Intervention: SCD's Lines/Catheters IV Catheter Type (from Nrsg): Peripheral IV Assessment/Plan Chief Complaint/Hosp Course s: 12.5 still has moderate R flank pain o: Physical exam General: Patient is laying in bed and answers questions appropriately Mentation: Patient is alert and oriented 4, Head: Normocephalic atraumatic Eyes: EOMI, pupils reactive to light Neck: Supple, nontender, midline Respiratory: Clear to auscultation bilaterally Cardiovascular: regular rate, no obvious murmurs Gastrointestinal: non-tender to palpation, bowel sounds heard. Neurological: Moves all extremities spontaneously Skin: No new skin lesions Patient is a 52-year-old female who presents with right-sided obstructing ureteric calculus and hydronephrosis Assessment and plan Right ureteral calculus with resultant hydroureteronephrosis -Urology has been consulted, monitoring with KUB and fluids, may need lithotripsy -Pain control and IV fluids Hepatosplenomegaly -Monitor Fat-containing umbilical hernia -Astigmatic monitor Hypothyroidism -Off medication and TSH and free T4 within normal limits, monitor Disposition -Follow with urology recommendations Problems: Exam/Review of Systems Vital Signs Vitals Vital Signs Date Time Temp Pulse Resp B/P Pulse Ox O2 Delivery O2 Flow Rate FiO2 08/19/17 14:48 76 18 96 21 08/19/17 08:00 98.6 124/62 08/18/17 09:48 Room Air Intake and Output 08/18/17 08/18/17 08/19/17 15:00 23:00 07:00 Intake Total 1385 ml 1250 ml Output Total 800 ml Balance 585 ml 1250 ml Results Result Diagram: 08/19/17 0553 08/19/17 0552 Results 24 hrs Laboratory Tests Test 08/19/17 05:52 08/19/17 05:53 Sodium Level 140 Potassium Level 4.0 Chloride Level 106 Carbon Dioxide Level 30 Anion Gap 8 Blood Urea Nitrogen 13 Creatinine 1.00 Glucose Level 115 Calcium Level 8.9 Magnesium Level 1.5 L Triglycerides Level 47 Cholesterol Level 63 L LDL Cholesterol, Calculated 36 HDL Cholesterol 18 L Cholesterol/HDL Ratio 3.5 Thyroid Stimulating Hormone (TSH) 0.983 Free Thyroxine 1.15 White Blood Count 6.5 # Red Blood Count 4.65 Hemoglobin 12.7 Hematocrit 37.7 Mean Corpuscular Volume 81.1 L Mean Corpuscular Hemoglobin 27.3 L Mean Corpuscular Hemoglobin Concent 33.7 Red Cell Distribution Width 13.1 Platelet Count 172 Mean Platelet Volume 10.3 Neutrophils % 61.2 Lymphocytes % 26.7 Monocytes % 7.6 Eosinophils % 3.1 Basophils % 1.2 Nucleated Red Blood Cells % 0.0 Neutrophils # 4.0 Lymphocytes # 1.7 Monocytes # 0.5 Eosinophils # 0.2 Basophils # 0.1 Nucleated Red Blood Cells # 0.0 Medications Medications Current Medications Morphine Sulfate 4 mg 4 mg Q4H PRN IV pain Last administered on 08/19/17 14:20 ; Admin Dose 4 MG; Start 08/18/17 at 11:00 Sodium Chloride (NS) 1,000 ml @ 125 mls/hr Q8H IV Last administered on 05:05; Admin Dose 125 MLS/HR; Start 08/18/17 at 11:00 Lorazepam (Ativan) 1 mg Q6H PRN IV anxiety/ agitation; Start 08/18/17 at 11:00 Ketorolac Tromethamine (Toradol) 30 mg Q6H PRN IV PAIN; Start 08/18/17 at 11:00 ; Stop 08/21/17 at 10:59 Ondansetron HCl (Zofran Inj) 4 mg Q6H PRN IV NAUSEA AND/OR VOMITING; Start 08/18/17 at 11:00 Tamsulosin HCl 0.4 mg 0.4 mg HS PO Last administered on 08/18/17 20:46; Admin Dose 0.4 MG; Start 08/18/17 at 21:00 Ceftriaxone Sodium (Rocephin) 50 ml @ 100 mls/hr Q24H IVPB Last administered on 08/19/17 14:16; Admin Dose 100 MLS/HR; Start 08/19/17 at 11:30 MOI BAH Aug 19, 2017 16:03
[2017-08-19 19:46] VITALS: BP 135/63; RESP 18
[2017-08-19] MEDS: TAMSULOSIN (SR) 0.4 MG CAP PO SCH (20:02)
[2017-08-20] VITALS (12 sets, daily range): BP systolic 142–178; BP diastolic 81–106; PULSE 68–82; RESP 13–24
[2017-08-20] MEDS: SOD CHLORIDE 0.9% 1,000 ML IV SCH ×3 (03:25→19:00)
[2017-08-20] MEDS: morphine 4 MG/ML VIAL IV PRN ×3 (05:24→14:33)
--- NOTE | 2017-08-20 08:00 | HPN ---
Date/Time of Note Date/Time of Note DATE: 08/20/17 TIME: 07:59 Interval H&P Admission Note Pt. seen H&P reviewed: No system changes EZEQUIEL GARDUNO MD Aug 20, 2017 08:00
[2017-08-20 09:58] LABS: BASOPHIL # 0.1 10^3/ul (0.0-0.1); BASOPHILS % 1.2 % (0.0-2.0); EOSINOPHILS # 0.2 10^3/ul (0.0-0.5); EOSINOPHILS % 3.5 % (0.0-7.0); HEMATOCRIT 37.7 % (37.0-47.0); HEMOGLOBIN 12.6 g/dl (12.0-16.0); LYMPHOCYTES # 1.6 10^3/ul (0.8-2.9); LYMPHOCYTES % 30.8 % (15.0-51.0); MEAN CORPUSCULAR HEMOGLOBIN 27.3 pg (29.0-33.0); MEAN CORPUSCULAR HGB CONC 33.4 g/dl (32.0-37.0); MEAN CORPUSCULAR VOLUME 81.6 fl (82.0-101.0); MEAN PLATELET VOLUME 10.1 fl (7.4-10.4); MONOCYTE # 0.3 10^3/ul (0.3-0.9); MONOCYTES % 4.8 % (0.0-11.0); NEUTROPHIL # 3.1 10^3/ul (1.6-7.5); NEUTROPHILS % 59.5 % (39.0-77.0); PLATELET COUNT 184 10^3/UL (140-415); RED BLOOD COUNT 4.62 10^6/ul (4.20-5.40); RED CELL DISTRIBUTION WIDTH 13.2 % (11.5-14.5); WHITE BLOOD COUNT 5.2 10^3/ul (4.8-10.8)
[2017-08-20 10:19] LABS: CALCIUM 8.9 mg/dl (8.4-10.2); CREATININE 0.77 mg/dl (0.44-1.00); POTASSIUM 4.2 mmol/L (3.5-5.1)
[2017-08-20 10:20] LABS: MAGNESIUM 1.6 mg/dl (1.7-2.5); PHOSPHORUS 4.2 mg/dl (2.5-4.9)
--- NOTE | 2017-08-20 10:23 | CONS ---
DATE OF ADMISSION: 08/18/2017 DATE OF CONSULTATION: 08/20/2017 Basically, the patient does have a right upper ureteral stone that has not moved much causing her ri ght hydronephrosis. I had scheduled her for the cystoscopy, right ureteroscopy, laser lithotripsy, and insertion of a JJ stent. I did explain the procedure to the patient in detail, the benefits, th e risks, the possible complications, the success, as well as possible being unable to reach the ston e and have to put a JJ stent and that she will need a followup procedure. Also the fact that we put a JJ stent and the stent has to be removed later on. If the stone was removed, then we could remov e the JJ stent in a few days. Otherwise, will have to put a stent and bring her back later on for t he ureteroscopy and laser lithotripsy. I did explain all of these details to her and she understood and she is agreeable to proceed. Dictated By: EZEQUIEL MARTINO/RADHA Conf#: [id number] DID#: [id number]
[2017-08-20] MEDS: CEFTRIAXONE 1 GM/50 ML (PMX) 50 ML IVPB SCH (11:42)
[2017-08-20] MEDS ORDERED: MAGNESIUM SULFATE 2 GM/50 ML 50 ML IVPB ONE (14:30)
--- NOTE | 2017-08-20 15:12 | PN ---
Date/Time of Note Date/Time of Note DATE: 08/20/17 TIME: 15:11 Assessment/Plan VTE Prophylaxis VTE Prophylaxis Intervention: ambulation, SCD's Lines/Catheters IV Catheter Type (from Nrsg): Peripheral IV Urinary Cath still in place: No Assessment/Plan Chief Complaint/Hosp Course s: 12.5 still has moderate R flank pain 12.6 pain still present o: Physical exam General: Patient is laying in bed and answers questions appropriately Mentation: Patient is alert and oriented 4, Head: Normocephalic atraumatic Eyes: EOMI, pupils reactive to light Neck: Supple, nontender, midline Respiratory: Clear to auscultation bilaterally Cardiovascular: regular rate, no obvious murmurs Gastrointestinal: non-tender to palpation, bowel sounds heard. Neurological: Moves all extremities spontaneously Skin: No new skin lesions Patient is a 52-year-old female who presents with right-sided obstructing ureteric calculus and hydronephrosis Assessment and plan Right ureteral calculus with resultant hydroureteronephrosis -Urology has been consulted,plans for lithotripsy and stent placement today if possible -continue fluids and pain control Hepatosplenomegaly -Monitor Fat-containing umbilical hernia -Astigmatic monitor Hypothyroidism -Off medication and TSH and free T4 within normal limits, monitor Disposition -Follow with urology recommendations Problems: Exam/Review of Systems Vital Signs Vitals Vital Signs Date Time Temp Pulse Resp B/P Pulse Ox O2 Delivery O2 Flow Rate FiO2 08/20/17 08:00 98.8 86 18 162/ 96 08/19/17 20:48 21 08/18/17 09:48 Room Air Intake and Output 08/19/17 08/19/17 08/20/17 15:00 23:00 07:00 Intake Total 100 ml 1960 ml 1475 ml Output Total 1000 ml 1200 ml Balance 100 ml 960 ml 275 ml Results Result Diagram: 08/20/17 0907 08/20/17 0907 Results 24 hrs Laboratory Tests Test 08/20/17 09:07 White Blood Count 5.2 Red Blood Count 4.62 Hemoglobin 12.6 Hematocrit 37.7 Mean Corpuscular Volume 81.6 L Mean Corpuscular Hemoglobin 27.3 L Mean Corpuscular Hemoglobin Concent 33.4 Red Cell Distribution Width 13.2 Platelet Count 184 Mean Platelet Volume 10.1 Neutrophils % 59.5 Lymphocytes % 30.8 Monocytes % 4.8 Eosinophils % 3.5 Basophils % 1.2 Nucleated Red Blood Cells % 0.0 Neutrophils # 3.1 Lymphocytes # 1.6 Monocytes # 0.3 Eosinophils # 0.2 Basophils # 0.1 Nucleated Red Blood Cells # 0.0 Sodium Level 141 Potassium Level 4.2 Chloride Level 104 Carbon Dioxide Level 30 Anion Gap 11 Blood Urea Nitrogen 14 Creatinine 0.77 Glucose Level 174 Calcium Level 8.9 Phosphorus Level 4.2 Magnesium Level 1.6 L Medications Medications Current Medications Morphine Sulfate 4 mg 4 mg Q4H PRN IV pain Last administered on 08/20/17 14:33 ; Admin Dose 4 MG; Start 08/18/17 at 11:00 Sodium Chloride (NS) 1,000 ml @ 125 mls/hr Q8H IV Last administered on 11:42; Admin Dose 125 MLS/HR; Start 08/18/17 at 11:00 Lorazepam (Ativan) 1 mg Q6H PRN IV anxiety/ agitation; Start 08/18/17 at 11:00 Ketorolac Tromethamine (Toradol) 30 mg Q6H PRN IV PAIN; Start 08/18/17 at 11:00 ; Stop 08/21/17 at 10:59 Ondansetron HCl (Zofran Inj) 4 mg Q6H PRN IV NAUSEA AND/OR VOMITING; Start 08/18/17 at 11:00 Tamsulosin HCl 0.4 mg 0.4 mg HS PO Last administered on 08/19/17 20:02; Admin Dose 0.4 MG; Start 08/18/17 at 21:00 Ceftriaxone Sodium 50 ml @ 100 mls/hr Q24H IVPB Last administered on 11:42; Admin Dose 100 MLS/HR; Start 08/19/17 at 11:30 Magnesium Sulfate (Magnesium Sulfate 2 Gm/50 ml) 50 ml @ 25 mls/hr ONCE ONCE IVPB ; Start 08/20/17 at 14:30; Stop 08/20/17 at 16:29 MOI BAH Aug 20, 2017 15:11
[2017-08-20] MEDS: ALBUTEROL/IPRATROPIUM (NEB) 3 ML AMP HHN SCH (19:39)
[2017-08-20] MEDS ORDERED: HYDROmorphONE (0.2 MG/ML) 10ML SYG IV ONE (19:42)
[2017-08-20] MEDS: HYDROmorphONE (0.2 MG/ML) 10ML SYG IV PRN ×2 (19:50→23:30)
[2017-08-20] MEDS ORDERED: KETOROLAC 30 MG INJ IV PRN (20:00)
[2017-08-20] MEDS ORDERED: hydrALAzine 20 MG INJ IV PRN (20:00)
[2017-08-20] MEDS ORDERED: LABETALOL HCL 20MG INJ IV PRN (20:00)
[2017-08-20] MEDS ORDERED: METOCLOPRAMIDE 10 MG INJ IV PRN (20:00)
[2017-08-20] MEDS ORDERED: MEPERIDINE 25 MG INJ IV PRN (20:00)
[2017-08-20] MEDS ORDERED: ONDANSETRON 4 MG INJ IV PRN (20:00)
[2017-08-20] MEDS ORDERED: FENTAnyl 50 MCG/ML VIAL IV PRN (20:00)
[2017-08-20] MEDS ORDERED: DIPHENHYDRAMINE 50 MG INJ IV PRN (20:00)
[2017-08-20] MEDS ORDERED: HYDROmorphONE (0.2 MG/ML) 10ML SYG IV PRN (20:00)
[2017-08-20] MEDS ORDERED: MIDAZOLAM 1 MG/ML 2 ML INJ ONE (20:50)
[2017-08-20] MEDS: TAMSULOSIN (SR) 0.4 MG CAP PO SCH (21:00)
[2017-08-20] MEDS ORDERED: PROPOFOL 20 ML ONE (22:09)
[2017-08-20] MEDS ORDERED: LIDOCAINE 2% (SDV) 5 ML INJ ONE (22:09)
[2017-08-20] MEDS ORDERED: ONDANSETRON 4 MG INJ ONE (22:10)
[2017-08-20] MEDS ORDERED: CIPROFLOXACIN 400MG/D5W 200 ML ONE (22:10)
--- NOTE | 2017-08-20 22:17 | OPR ---
Date/Time of Note Date/Time of Note DATE: 08/20/17 TIME: 22:09 Operative Report Procedure Date: Aug 20, 2017 Preoperative Diagnosis Right upper ureteral stone Postoperative Diagnosis Right upper ureteral stone Operation/Procedure Performed Cystoscopy, right ureteral pyeloscopy, laser lithotripsy and insertion of right ureteral JJ stent 6 [place] by 22 cm long Surgeon see signature line Preparing Box Tender None Anesthesia Type: general Anesthesiologist: FRANCES DELANEY MD Estimated Blood Loss: none Transfusion none Specimen Stone fragments Grafts/Implants none Tubes/Drains Right ureteral JJ stent 6 [place] by 22 cm long Complications none Pt Condition Post Procedure: stable Disposition: PACU Indications Right upper ureteral stone was obstruction Procedure Description The patient was brought to the operating room and general anesthesia was induced. The patient received 400 mg of Cipro IV at the start of the procedure. Timeout was done and the patient was identified by her name, birthdate and the procedure and the side of the procedure. The patient was then positioned in the lithotomy position and the genital area was prepped and draped in the usual sterile manner. A 21 [place] cystoscope sheath was introduced into the bladder and urine was collected for culture and sensitivity. The right ureteral orifice was identified and then cannulated was a 5 [place] open ended ureteral catheter. A 0.035 zip wire was advanced through the open ended catheter all the way up to the kidney. The open-ended was removed leaving the zip wire in place. The dual-lumen ureteral catheter was advanced on the zip wire up to the level of the stone then a 0.035 sensor wire was passed through the second channel of the dual-lumen all the way up to the kidney. The dual-lumen catheter was removed leaving the [address]. The sensor wire was used as a safety wire and the zip wire was used to advance the access sheath on it size 11 x 13 outside diameter and 28 cm long. Then the digital flexible ureteroscope was passed through the access sheath all the way up to the kidney. The stone did move from the upper ureter into the kidney itself. The stone was then visualized and broken with the holmium laser into pieces. These pieces were basketed . The ureteroscope was then removed. Then the cystoscope was reintroduced into the bladder on the safety wire and a 6 [place] by 22 cm long JJ stent was advanced on the sensor wire, had its proximal and curling into the kidney and the distal end curling into the bladder. The distal end is connected to a string that was taped to the patient's right groin. The patient was transferred to recovery room in stable and satisfactory condition EZEQUIEL GARDUNO MD Aug 20, 2017 22:17
[2017-08-21 00:02] VITALS: BP 155/85; RESP 20
[2017-08-21] MEDS: morphine 4 MG/ML VIAL IV PRN ×6 (00:12→22:15)
[2017-08-21 02:00] VITALS: BP 133/75; RESP 20
[2017-08-21] MEDS: SOD CHLORIDE 0.9% 1,000 ML IV SCH ×3 (03:00→20:09)
--- NOTE | 2017-08-21 03:03 | RADRPT ---
PROCEDURE: Fluoroscopic services. CLINICAL INDICATION: Cystoscopy and right ureteroscopy with stent placement. TECHNIQUE: Fluoroscopy time: 62.3 seconds. Radiation dose: 36.42 mGy Images: 25 One or more of the following dose reduction techniques were used: - Automated exposure control. - Adjustment of the mA and/or kV according to patient size. - Use of iterative reconstruction technique. COMPARISON: CT abdomen pelvis 08/18/2017, KUB 08/19/2017. FINDINGS: Intraoperative fluoroscopic services provided for cystoscopy and right ureteroscopy. A rig ht ureteral calculus is present at the L3-L4 intervertebral disc space level consistent with examina tions of reference. Final images demonstrate placement of a right-sided double-J ureteral stent. IMPRESSION: Fluoroscopic services provided for cystostomy, right ureteroscopy, and right ureteral stent placemen roc RPTAT: HRSR Physician Juan Date Time Electronically viewed and signed by Physician Juan on 08/21/2017 03:02 RR/
[2017-08-21 05:57] LABS: BASOPHIL # 0.1 10^3/ul (0.0-0.1); BASOPHILS % 1.2 % (0.0-2.0); EOSINOPHILS # 0.2 10^3/ul (0.0-0.5); EOSINOPHILS % 4.3 % (0.0-7.0); HEMATOCRIT 35.8 % (37.0-47.0); HEMOGLOBIN 12.1 g/dl (12.0-16.0); LYMPHOCYTES # 1.6 10^3/ul (0.8-2.9); MEAN CORPUSCULAR HEMOGLOBIN 27.8 pg (29.0-33.0); MEAN CORPUSCULAR HGB CONC 33.8 g/dl (32.0-37.0); MEAN CORPUSCULAR VOLUME 82.1 fl (82.0-101.0); MEAN PLATELET VOLUME 10.2 fl (7.4-10.4); MONOCYTE # 0.4 10^3/ul (0.3-0.9); MONOCYTES % 7.1 % (0.0-11.0); NEUTROPHIL # 3.3 10^3/ul (1.6-7.5); PLATELET COUNT 171 10^3/UL (140-415); RED BLOOD COUNT 4.36 10^6/ul (4.20-5.40); RED CELL DISTRIBUTION WIDTH 13.2 % (11.5-14.5); WHITE BLOOD COUNT 5.6 10^3/ul (4.8-10.8)
[2017-08-21 06:26] LABS: CALCIUM 8.4 mg/dl (8.4-10.2); CREATININE 0.77 mg/dl (0.44-1.00); POTASSIUM 3.6 mmol/L (3.5-5.1)
[2017-08-21 08:00] VITALS: BP 138/79; RESP 18
[2017-08-21] MEDS: ALBUTEROL/IPRATROPIUM (NEB) 3 ML AMP HHN SCH ×3 (08:49→20:00)
[2017-08-21 09:15] LABS: MAGNESIUM 1.7 mg/dl (1.7-2.5); PHOSPHORUS 5.1 mg/dl (2.5-4.9)
[2017-08-21] MEDS: CEFTRIAXONE 1 GM/50 ML (PMX) 50 ML IVPB SCH (11:11)
[2017-08-21 14:00] VITALS: BP 110/61; RESP 18
--- NOTE | 2017-08-21 14:12 | PN ---
Date/Time of Note Date/Time of Note DATE: 08/21/17 TIME: 14:07 Assessment/Plan VTE Prophylaxis VTE Prophylaxis Intervention: ambulation, SCD's Lines/Catheters IV Catheter Type (from Nrsg): Peripheral IV Urinary Cath still in place: No Assessment/Plan Chief Complaint/Hosp Course s: 12.5 still has moderate R flank pain 12.6 pain still present 12.7 s/p stent placement, patient still has flank pain, but can sleep o: Physical exam General: Patient is laying in bed and answers questions appropriately Mentation: Patient is alert and oriented 4, Head: Normocephalic atraumatic Eyes: EOMI, pupils reactive to light Neck: Supple, nontender, midline Respiratory: Clear to auscultation bilaterally Cardiovascular: regular rate, no obvious murmurs Gastrointestinal: non-tender to palpation, bowel sounds heard. Neurological: Moves all extremities spontaneously Skin: No new skin lesions Patient is a 52-year-old female who presents with right-sided obstructing ureteric calculus and hydronephrosis Assessment and plan Right ureteral calculus with resultant hydroureteronephrosis -s/p lithotripsy and JJ stent placement -will need f/u for removal in the future with Dr. Daly Hepatosplenomegaly -Monitor Fat-containing umbilical hernia -Asymptomatic monitor Hypothyroidism -Off medication and TSH and free T4 within normal limits, monitor Disposition -flank is still pain, likely sequelae from procedure/surgery -monitor as patient still has wire, urology to remove -will dispo when pain controlled Problems: Exam/Review of Systems Vital Signs Vitals Vital Signs Date Time Temp Pulse Resp B/P Pulse Ox O2 Delivery O2 Flow Rate FiO2 08/21/17 08:53 21 08/21/17 08:00 98.6 69 18 138/79 20 08/20/17 23:17 Nasal Cannula 08/20/17 22:49 2.0 Intake and Output 08/20/17 08/20/17 08/21/17 15:00 23:00 07:00 Intake Total 50 ml 850 ml 1840 ml Output Total 5 ml 1200 ml Balance 50 ml 845 ml 640 ml Results Result Diagram: 08/21/17 0525 08/21/17 0525 Results 24 hrs Laboratory Tests Test 08/21/17 05:25 White Blood Count 5.6 Red Blood Count 4.36 Hemoglobin 12.1 Hematocrit 35.8 L Mean Corpuscular Volume 82.1 Mean Corpuscular Hemoglobin 27.8 L Mean Corpuscular Hemoglobin Concent 33.8 Red Cell Distribution Width 13.2 Platelet Count 171 Mean Platelet Volume 10.2 Neutrophils % 58.0 Lymphocytes % 29.0 Monocytes % 7.1 Eosinophils % 4.3 Basophils % 1.2 Nucleated Red Blood Cells % 0.0 Neutrophils # 3.3 Lymphocytes # 1.6 Monocytes # 0.4 Eosinophils # 0.2 Basophils # 0.1 Nucleated Red Blood Cells # 0.0 Sodium Level 140 Potassium Level 3.6 Chloride Level 104 Carbon Dioxide Level 30 Anion Gap 10 Blood Urea Nitrogen 11 Creatinine 0.77 Glucose Level 140 Calcium Level 8.4 Phosphorus Level 5.1 H Magnesium Level 1.7 Medications Medications Current Medications Morphine Sulfate 4 mg 4 mg Q4H PRN IV pain Last administered on 08/21/17 13:08 ; Admin Dose 4 MG; Start 08/18/17 at 11:00 Sodium Chloride (NS) 1,000 ml @ 125 mls/hr Q8H IV Last administered on 05:07; Admin Dose 125 MLS/HR; Start 08/18/17 at 11:00 Lorazepam (Ativan) 1 mg Q6H PRN IV anxiety/ agitation; Start 08/18/17 at 11:00 Ondansetron HCl (Zofran Inj) 4 mg Q6H PRN IV NAUSEA AND/OR VOMITING; Start 08/18/17 at 11:00 Tamsulosin HCl 0.4 mg 0.4 mg HS PO Last administered on 08/19/17 20:02; Admin Dose 0.4 MG; Start 08/18/17 at 21:00 Ciprofloxacin/ Dextrose (Cipro Ivpb) 200 ml @ 200 mls/hr Q24H IVPB ; Start 08/22/17 at 13:00 MOI BAH Aug 21, 2017 14:12
--- NOTE | 2017-08-21 19:51 | CONS ---
Date/Time of Note Date/Time of Note DATE: 08/21/17 TIME: 19:48 Consult Date/Type/Reason Admit Date/Time Aug 21, 2017 at 12:43 Initial Consult Date August 18, 2017 Type of Consultation: Urology Reason for Consultation Right upper ureteral and renal stone, status post right ureteroscopy pyeloscopy laser lithotripsy and insertion of right ureteral JJ stent Ordering Provider: DILAN KIM Subjective Patient states that she is feeling better, she denies having any pain Objective Vital Signs Date Time Temp Pulse Resp B/P Pulse Ox O2 Delivery O2 Flow Rate FiO2 08/21/17 14:20 80 18 99 21 08/21/17 14:00 98.8 110/61 08/20/17 23:17 Nasal Cannula 08/20/17 22:49 2.0 Intake and Output 08/20/17 08/20/17 08/21/17 15:00 23:00 07:00 Intake Total 50 ml 850 ml 1840 ml Output Total 5 ml 1200 ml Balance 50 ml 845 ml 640 ml Exam There is no flank tenderness the abdomen is soft Results/Medications Result Diagram: 08/21/17 0525 08/21/17 0525 Results 24 hrs Laboratory Tests Test 08/21/17 05:25 White Blood Count 5.6 Red Blood Count 4.36 Hemoglobin 12.1 Hematocrit 35.8 L Mean Corpuscular Volume 82.1 Mean Corpuscular Hemoglobin 27.8 L Mean Corpuscular Hemoglobin Concent 33.8 Red Cell Distribution Width 13.2 Platelet Count 171 Mean Platelet Volume 10.2 Neutrophils % 58.0 Lymphocytes % 29.0 Monocytes % 7.1 Eosinophils % 4.3 Basophils % 1.2 Nucleated Red Blood Cells % 0.0 Neutrophils # 3.3 Lymphocytes # 1.6 Monocytes # 0.4 Eosinophils # 0.2 Basophils # 0.1 Nucleated Red Blood Cells # 0.0 Sodium Level 140 Potassium Level 3.6 Chloride Level 104 Carbon Dioxide Level 30 Anion Gap 10 Blood Urea Nitrogen 11 Creatinine 0.77 Glucose Level 140 Calcium Level 8.4 Phosphorus Level 5.1 H Magnesium Level 1.7 Medications Current Medications Morphine Sulfate 4 mg 4 mg Q4H PRN IV pain Last administered on 08/21/17t 17:43 ; Admin Dose 4 MG; Start 08/18/17 at 11:00 Sodium Chloride (NS) 1,000 ml @ 125 mls/hr Q8H IV Last administered on 05:07; Admin Dose 125 MLS/HR; Start 08/18/17 at 11:00 Lorazepam (Ativan) 1 mg Q6H PRN IV anxiety/ agitation; Start 08/18/17 at 11:00 Ondansetron HCl (Zofran Inj) 4 mg Q6H PRN IV NAUSEA AND/OR VOMITING; Start 08/18/17 at 11:00 Tamsulosin HCl 0.4 mg 0.4 mg HS PO Last administered on 08/19/17 20:02; Admin Dose 0.4 MG; Start 08/18/17 at 21:00 Ciprofloxacin/ Dextrose (Cipro Ivpb) 200 ml @ 200 mls/hr Q24H IVPB ; Start 08/22/17 at 13:00 Assessment/Plan Chief Complaint/Hosp Course 52-year-old female was admitted to the hospital because of right flank pain was nausea vomiting and chills. CT scan of the abdomen and pelvis showed a 5 mm stone in the upper right ureter was hydronephrosis. The patient underwent cystoscopy right ureteral pyeloscopy yesterday the stone was broken and removed patient had a JJ stent put in. She is comfortable today the distal end of the JJ stent is attached to a string that is taped to her right groin and that is still intact. I did talk to the patient and informed her that she needs to come to the office next Friday to remove the JJ stent. I gave her my card was my address on it and my phone number so she could call and make the appointment. Problems: EZEQUIEL GARDUNO MD Aug 21, 2017 19:50
[2017-08-21 20:00] VITALS: BP 117/66; RESP 19
[2017-08-21] MEDS: TAMSULOSIN (SR) 0.4 MG CAP PO SCH (22:15)
[2017-08-22] MEDS: morphine 4 MG/ML VIAL IV PRN ×2 (02:16→07:49)
[2017-08-22] MEDS: SOD CHLORIDE 0.9% 1,000 ML IV SCH ×2 (03:00→12:33)
[2017-08-22 03:12] VITALS: BP 133/71; RESP 16
[2017-08-22 06:01] LABS: BASOPHIL # 0.1 10^3/ul (0.0-0.1); BASOPHILS % 1.2 % (0.0-2.0); EOSINOPHILS # 0.3 10^3/ul (0.0-0.5); EOSINOPHILS % 4.7 % (0.0-7.0); HEMATOCRIT 37.9 % (37.0-47.0); HEMOGLOBIN 12.8 g/dl (12.0-16.0); LYMPHOCYTES # 1.8 10^3/ul (0.8-2.9); MEAN CORPUSCULAR HEMOGLOBIN 27.4 pg (29.0-33.0); MEAN CORPUSCULAR HGB CONC 33.8 g/dl (32.0-37.0); MEAN PLATELET VOLUME 9.9 fl (7.4-10.4); MONOCYTE # 0.4 10^3/ul (0.3-0.9); MONOCYTES % 6.6 % (0.0-11.0); NEUTROPHIL # 3.3 10^3/ul (1.6-7.5); NEUTROPHILS % 56.3 % (39.0-77.0); PLATELET COUNT 170 10^3/UL (140-415); RED BLOOD COUNT 4.68 10^6/ul (4.20-5.40); RED CELL DISTRIBUTION WIDTH 13.2 % (11.5-14.5); WHITE BLOOD COUNT 5.8 10^3/ul (4.8-10.8)
[2017-08-22 07:09] LABS: CALCIUM 9.1 mg/dl (8.4-10.2); CREATININE 0.68 mg/dl (0.44-1.00); MAGNESIUM 1.4 mg/dl (1.7-2.5); POTASSIUM 4.2 mmol/L (3.5-5.1)
[2017-08-22] MEDS: ALBUTEROL/IPRATROPIUM (NEB) 3 ML AMP HHN SCH ×2 (07:46→13:50)
[2017-08-22 07:55] VITALS: BP 164/75; RESP 18
--- NOTE | 2017-08-22 12:18 | PDOCDIS ---
Discharge Instructions CONDITION Patient Condition: Stable HOME CARE INSTRUCTIONS: Special Diet: regular FOLLOW UP/APPOINTMENTS Follow-up Plan 1. Make an appointment to see Dr. Jose Daly by friday08/25/17 to remove string 2. Take and finish all abx prescribed 3. Continue other home medications 4. Follow up with your primary care provider as soon as possible. MOI BAH Aug 22, 2017 12:18
[2017-08-22] MEDS ORDERED: TAMS-14 PO (12:24)
[2017-08-22] MEDS ORDERED: HYDR-906 PO (12:24)
[2017-08-22] MEDS ORDERED: CIPR500T4 PO (12:24)
[2017-08-22] MEDS ORDERED: MAGNESIUM SULFATE 2 GM/50 ML 50 ML IVPB ONE (13:00)
[2017-08-22] MEDS ORDERED: CIPROFLOXACIN 400MG/D5W 200 ML IVPB SCH (13:00)
[2017-08-22 14:12] VITALS: BP 141/69; RESP 18
--- NOTE | 2017-08-22 15:08 | DS ---
Date/Time of Note Date/Time of Note DATE: 08/22/17 TIME: 15:08 Discharge Summary Admission/Discharge Info Admit Date/Time Aug 21, 2017 at 12:43 Discharge Date/Time Patient Condition: Stable Hospital Course Patient is a 52-year-old homeless female who presents with right-sided flank pain found to have right ureteral calculus and hydroureteronephrosis. Patient was seen by urology and lithotripsy and JJ stent placement was made with resultant string still attached. Patient is to follow-up with urology on Friday , August 25 but is okay to be discharged today as patient wants to go back to her current living situation which is with her significant other and her dog. Patient also had UTI during this encounter and will be discharged with appropriate antibiotics. Patient to follow with primary care provider as soon as possible. Home Meds Active Scripts Hydrocodone/Acetaminophen ([place] 5-325 Tablet) 1 Each Tablet, 1 EACH PO BID Y for PAIN, #10 TAB Prov:MOI BAH 08/22/17 Tamsulosin Hcl* (Flomax*) 0.4 Mg Cap.er.24h, 0.4 MG PO HS for 30 Days, #30 CAP Prov:MOI BAH 08/22/17 Ciprofloxacin Hcl* (Ciprofloxacin Hcl*) 500 Mg Tablet, 500 MG PO BID, #14 TAB Prov:MOI BAH 08/22/17 Reported Medications Cholecalciferol* (Vitamin D3*) 1,000 Unit Tablet, 1000 UNIT PO DAILY, TAB 08/18/17 Discontinued Reported Medications Albuterol Sulfate* (Ventolin HFA*) 18 Gm Hfa.aer.ad, 2 PUFF INHALATION Q6H, #1 INHALER 08/18/17 Levothyroxine Sodium* (Levothyroxine Sodium*) 25 Mcg Tablet, 25 MCG PO BEFORE BREAKFAST, #30 TAB 08/18/17 Follow-up Plan 1. Make an appointment to see Dr. Jose Daly by friday08/25/17 to remove string 2. Take and finish all abx prescribed 3. Continue other home medications 4. Follow up with your primary care provider as soon as possible. Primary Care Provider Care Physician No Primary Time spent on discharge: > 30 minutes Pending Labs Laboratory Tests Test 08/22/17 05:35 White Blood Count 5.810^3/ul (4.8-10.8) Red Blood Count 4.6810^6/ul (4.20-5.40) Hemoglobin 12.8g/dl (12.0-16.0) Hematocrit 37.9% (37.0-47.0) Mean Corpuscular Volume 81.0fl (82.0-101.0) Mean Corpuscular Hemoglobin 27.4pg (29.0-33.0) Mean Corpuscular Hemoglobin Concent 33.8g/dl (32.0-37.0) Red Cell Distribution Width 13.2% (11.5-14.5) Platelet Count 28179^3/UL (140-415) Mean Platelet Volume 9.9fl (7.4-10.4) Neutrophils % 56.3% (39.0-77.0) Lymphocytes % 31.0% (15.0-51.0) Monocytes % 6.6% (0.0-11.0) Eosinophils % 4.7% (0.0-7.0) Basophils % 1.2% (0.0-2.0) Nucleated Red Blood Cells % 0.0/100WBC (0.0-0.0) Neutrophils # 3.310^3/ul (1.6-7.5) Lymphocytes # 1.810^3/ul (0.8-2.9) Monocytes # 0.410^3/ul (0.3-0.9) Eosinophils # 0.310^3/ul (0.0-0.5) Basophils # 0.110^3/ul (0.0-0.1) Nucleated Red Blood Cells # 0.010^3/ul (0.0-0.0) Sodium Level 141mmol/L (135-144) Potassium Level 4.2mmol/L (3.5-5.1) Chloride Level 104mmol/L (97-110) Carbon Dioxide Level 31mmol/L (21-31) Anion Gap 10 (8-16) Blood Urea Nitrogen 11mg/dl (7-20) Creatinine 0.68mg/dl (0.44-1.00) Glucose Level 85mg/dl (70-220) Calcium Level 9.1mg/dl (8.4-10.2) Phosphorus Level 5.0mg/dl (2.5-4.9) Magnesium Level 1.4mg/dl (1.7-2.5) MOI BAH Aug 22, 2017 15:08
== END 2017-08-22 16:10 | disposition home or self-care (01) | DRG 669 ==
LOC: E/R 05:38 → PP2 07:37 → OBSVTOIN 08-21 12:43
PROVIDERS: ADMIT Internal Medicine; ATTEND Internal Medicine
PROC: 0T768DZ Dilation of Right Ureter with Intraluminal Device, Via Natural or Artificial Opening Endoscopic (ICD-10-PCS; 2017-08-20)
PROC: 0TC68ZZ Extirpation of Matter from Right Ureter, Via Natural or Artificial Opening Endoscopic (ICD-10-PCS; principal; 2017-08-20 19:00)
DX: N13.2 Hydronephrosis with renal and ureteral calculous obstruction (principal); R16.2 Hepatomegaly with splenomegaly, not elsewhere classified; F84.5 Asperger's syndrome; Z59.0 Homelessness; Z72.0 Tobacco use; E03.9 Hypothyroidism, unspecified; F90.9 Attention-deficit hyperactivity disorder, unspecified type; F15.90 Other stimulant use, unspecified, uncomplicated; F12.90 Cannabis use, unspecified, uncomplicated; K42.9 Umbilical hernia without obstruction or gangrene
CPT/HCPCS: 71010; 74000; 74176; 74430; 80048; 80053; 80061; 81001; 81003; 83605; 83690; 83735; 84100; 84439; 84443; 85025; 85610; 85730; 87086; 88300; 90686; 94640; 94664; 96374; 96375; 97163; G0378; C2617; J0696; J0744; J1170; J1885; J2250; J2270; J2405; J3010; J3475; J7030; J7040

== ENCOUNTER → 2019-03-28 | Emergency (ER) | payer MEDICAID, OTHER ==
[~2019-03-28] VITALS: Ht 182.9 cm; Wt 87.5 kg
[~2019-03-28] MED LIST: CEPH-443 PO; CHOL100062 PO; CIPR500T4 PO; DIPHTH/TET/ACEL PERTUSS (ADULT) 0.5 ML VIAL IM* ONE; HYDR-4011 PO; HYDROCODONE/APAP (5/325) TAB PO STA; LIDOCAINE 2%/EPI MPF (SDV) 20 ML VIAL INJ STA; LIDOCAINE 4% CR TOP ONE; NAPR-985 PO; TAMS-14 PO
[2019-03-28 20:05] VITALS: Ht 182.9 cm; Wt 87.5 kg
[2019-03-28 23:31] VITALS: BP 128/87; PULSE 77; RESP 18
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
== END | disposition home or self-care (01) ==
LOC: FTE 20:04
DX: S81.012A Laceration without foreign body, left knee, initial encounter (principal); J45.909 Unspecified asthma, uncomplicated; F17.210 Nicotine dependence, cigarettes, uncomplicated; V13.4XXA Pedal cycle driver injured in collision with car, pick-up truck or van in traffic accident, initial encounter; Z23 Encounter for immunization
CPT/HCPCS: 73562; 90471; 90715